=== PATIENT | male | born 1950 | race Caucasian/White ===

== ENCOUNTER 2020-06-24 18:24 | Emergency (ER) | payer MEDICARE, SELFPAY ==
--- NOTE | 2020-06-24 | CT_ITS ---
PROCEDURE: CT CERVICAL SPINE W CON CLINICAL INDICATION: neck pain COMPARISON: No exams were available for comparison TECHNIQUE: 75 mL Optiray 350 Axial images obtained with sagittal and coronal reformats. All CT scans at the facility use one or more dose reduction, viz: automated exposure control, ma/kV adjustment per patient size (including targeted exams where dose is matched to indication, i.e. head), or iterative reconstruction technique. Axial spiral CT scanning performed of the cervical spine beginning at the base of the skull and continuing to the upper T-spine. 3-D multiplanar reconstruction with 3-D manipulation of volumetric data set in image rendering was completed by the radiologist and/or technologist with the supervision of the radiologist on independent workstation. FINDINGS: There is straightening of the cervical lordosis could be due to patient positioning or muscle spasm. There is normal alignment. No acute fracture or dislocation. No lytic or blastic change. No enhancing lesions are evident. There is an area of decreased attenuation in the right lobe of the thyroid gland measuring 1 cm. This is anterior. In the right lobe posterior there is an additional 1 cm hypodensity. There has been a prior median sternotomy. C2-C3: Mild degenerative disc disease. C3-C4: Mild degenerative disc disease with minimal prominence and ossification of the posterior longitudinal ligament. C4-C5: Degenerate disc disease with left-sided foraminal narrowing from facet and uncovertebral hypertrophy. 2 mm anterolisthesis of C4. C5-C6: Minimal bulging disc. C6-C7: Unremarkable. C7-T1: Unremarkable. Lung apices are clear. There is bowing of the posterior aspect of the trachea having a semilunar configuration which may be seen with tracheal bronchomalacia. Please correlate clinically. There is mild nonspecific thickening of the esophagus in the cervical region. IMPRESSION: 1. Multilevel cervical spondylosis as detailed above. 2. There is bowing of the posterior aspect of the trachea having a semilunar configuration which may be seen with tracheal bronchomalacia. Please correlate clinically. There is mild nonspecific thickening of the esophagus in the cervical region. 3. At least 2 thyroid nodules on the right. Dictated by: Gwendolyn, Resident 08/03/2020 11:55 Tristin Li MD in [place] 08/03/2020 12:09
[2020-06-24 18:25] VITALS: BP 171/90; PULSE 73; RESP 16; TEMP 37.2; O2SAT 96; BMI 28.1
--- NOTE | 2020-06-24 18:48 | HMH.EDGENADL ---
ED Disposition Condition on Discharge: Fair - Critical Care Critical Care Time: No <EdwardLuc - Last Filed: 06/24/20 20:12> <Jerzy Macias - Last Filed: 06/24/20 21:12> Clinical Impression: Neck pain Cervical osteoarthritis Qualifiers: Spinal osteoarthritis complication: with radiculopathy Qualified Code(s): M47.22 - Other spondylosis with radiculopathy, cervical region Disposition: Home, Self-Care Instructions: DI for Neck Pain Additional Instructions: keep appt in am Referrals: Addy Orozco MD [Primary Care Provider] - Attestation: On 06/24/20, the high probability of a clinically significant, sudden or life threatening deterioration of the following system(s) required my full and direct attention, intervention and personal management. The time I documented below is in addition to time spent performing reported procedures but includes the following listed in this critical care notation. Medical Decision Making - Lucien Inquiry Pt receiving controlled substance: Yes Lucien was queried for this patient: Yes Reference #:: [id number] Risks and benefits of using a controlled substance: were discussed with pt by me Comment: 0 rxs. - Lab Data Result diagrams: 06/24/20 19:20 06/24/20 19:20 - CT Data CT Scan: C-Spine Time Received: 19:42 ([facility] fax) ED CT Reviewed: Yes: I have viewed the radiologist's interpretation <AmrikkatieLuc - Last Filed: 06/24/20 20:12> - Lab Data Lab results reviewed: Yes: I reviewed the patient's lab results. Result diagrams: 06/24/20 19:20 06/24/20 19:20 <Jerzy Macias - Last Filed: 06/24/20 21:12> Vital Signs: 06/24/20 18:25 06/24/20 19:09 06/24/20 19:36 Temperature 98.9 F Temperature Source Oral Pulse Rate [Radial] 73 73 67 Respiratory Rate 16 18 18 Blood Pressure [Right Arm] 171/90 H 165/87 H 138/85 Blood Pressure Mean [Right Arm] 117 113 102 Blood Pressure Source [Right Arm] Automatic Cuff Blood Pressure Position [Right Arm] Sitting Sitting 02 Sat by Pulse Oximetry 96 94 L 93 L Oxygen Delivery Method Room Air Room Air 06/24/20 20:12 06/24/20 20:36 Temperature Temperature Source Pulse Rate [Radial] 68 61 Respiratory Rate 18 18 Blood Pressure [Right Arm] 140/86 130/74 Blood Pressure Mean [Right Arm] 104 92 Blood Pressure Source [Right Arm] Blood Pressure Position [Right Arm] 02 Sat by Pulse Oximetry 93 L 94 L Oxygen Delivery Method Room Air Room Air - Lab Data Lab Results 06/24/20 19:20: WBC 12.6 H, RBC 5.03, Hgb 14.2, Hct 41.6 L, MCV 82.8, MCH 28.2, MCHC 34.0, RDW 14.2, Plt Count 190, MPV 8.4, Neut % (Auto) 75.6, Lymph % (Auto) 16.2, [place] % (Auto) 7.0, Eos % (Auto) 1.1, Baso % (Auto) 0.2, Neut # (Auto) 9.5 H, Lymph # (Auto) 2.1, [place] # (Auto) 0.9, Eos # (Auto) 0.1, Baso # (Auto) 0.0, ESR 27 H 06/24/20 19:20: Sodium 137, Potassium 3.9, Chloride 96 L, Carbon Dioxide 30, Anion Gap 14.9, BUN 26 H, Creatinine 1.20, Estimated Creat Clear 67, Estimated GFR 60, Est GFR ( Amer) 73, Glucose 172 H, Calcium 9.3, C-Reactive Protein 38.0 H 06/24/20 20:02: Lactate 2.1 Orders (Tests/Meds): ED MEDICATIONS Discontinued Medications Generic Name Dose Route Start Last Admin Trade Name Tuan PRN Reason Stop Dose Admin Ioversol 75 ml 06/24/20 20:25 06/24/20 20:27 Ioversol-350 (74%) 100ml Vial IV 06/24/20 20:26 75 ml ONCE ONE Administration Protocol Ketorolac Tromethamine 15 mg 06/24/20 19:01 06/24/20 19:07 Ketorolac 30mg/Ml Vial IV 06/24/20 19:02 15 mg ONCE ONE Administration Methylprednisolone Sodium Succinate 125 mg 06/24/20 21:02 06/24/20 21:03 Methylprednisolone Sod Succ 125mg Vial IV 06/24/20 21:03 125 mg ONCE ONE Administration Morphine Sulfate 4 mg 06/24/20 19:01 06/24/20 19:07 Morphine 4mg/Ml Syringe IV 06/24/20 19:02 4 mg ONCE ONE Administration Ondansetron HCl 4 mg 06/24/20 19:01 06/24/20 19:08 Ondansetron 4mg/2ml Vial IV 06/24/20 19:02 4 mg
--- NOTE | 2020-06-24 19:00 | CT_ITS ---
PROCEDURE: CT CERVICAL SPINE WO CON CLINICAL INDICATION: neck pain COMPARISON: No exams were available for comparison TECHNIQUE: Axial images obtained with sagittal and coronal reformats. All CT scans at the facility use one or more dose reduction, viz: automated exposure control, ma/kV adjustment per patient size (including targeted exams where dose is matched to indication, i.e. head), or iterative reconstruction technique. Axial spiral CT scanning performed of the cervical spine beginning at the base of the skull and continuing to the upper T-spine. 3-D multiplanar reconstruction with 3-D manipulation of volumetric data set in image rendering was completed by the radiologist and/or technologist with the supervision of the radiologist on independent workstation. FINDINGS: There is straightening of the cervical lordosis could be due to patient positioning or muscle spasm. There is normal alignment. No acute fracture or dislocation. No lytic or blastic change. C2-C3: Mild degenerative disc disease. C3-C4: Mild degenerative disc disease with minimal prominence and ossification of the posterior longitudinal ligament. C4-C5: Degenerate disc disease with left-sided foraminal narrowing from facet and uncovertebral hypertrophy. 2 mm anterolisthesis of C4. C5-C6: Minimal bulging disc. C6-C7: Unremarkable. C7-T1: Unremarkable. Lung apices are clear. There is bowing of the posterior aspect of the trachea having a semilunar configuration which may be seen with tracheal bronchomalacia. Please correlate clinically. There is mild nonspecific thickening of the esophagus in the cervical region. IMPRESSION: 1. Multilevel cervical spondylosis as detailed above. 2. There is bowing of the posterior aspect of the trachea having a semilunar configuration which may be seen with tracheal bronchomalacia. Please correlate clinically. There is mild nonspecific thickening of the esophagus in the cervical region. Dictated by: Tristin Li MD 06/25/2020 08:41 Tristin Li MD in [place] 06/25/2020 08:41
[2020-06-24 19:09] VITALS: BP 165/87; PULSE 73; RESP 18; O2SAT 94
[2020-06-24 19:24] LABS: Basophils % 0.2 % (0.1-2.0); Eosinophils # 0.1 K/mm3 (0.0-0.4); Eosinophils % 1.1 % (0.1-12.0); Hematocrit 41.6 % (42.0-52.0); Hemoglobin 14.2 g/dL (14.1-18.0); Lymphocytes # 2.1 K/mm3 (0.7-4.5); Lymphocytes % 16.2 % (10-50); Mean Corpuscular Hemoglobin 28.2 pg (27.0-31.2); Mean Corpuscular Volume 82.8 fl (80-94); Mean Platelet Volume 8.4 fl (7.4-10.4); Monocytes # 0.9 K/mm3 (0.1-1.0); Neutrophils # 9.5 K/mm3 (1.8-7.8); Neutrophils % 75.6 % (37.0-80.0); Platelet Count 190 K/mm3 (142-424); Red Blood Count 5.03 M/mm3 (4.60-6.20); Red Cell Distribution Width 14.2 % (11.5-17.5); White Blood Count 12.6 K/mm3 (4.8-10.8)
[2020-06-24 19:29] LABS: Chloride 96 mmol/L (98-107); Sodium 137 mmol/L (136-145)
[2020-06-24 19:30] LABS: Potassium 3.9 mmoL/L (3.5-5.1)
[2020-06-24 19:32] LABS: Blood Urea Nitrogen 26 mg/dl (9-20); Creatinine Clearance Estimated 67 mL/min (50-200); Estimated Glomerular Filt Rate 60 ml/min (>60); GFR (African American) 73 ML/MIN (>60)
[2020-06-24 19:33] LABS: Anion Gap 14.9 mEq/L (5-15); Calcium 9.3 mg/dl (8.4-10.2); Carbon Dioxide 30 mmol/L (22.0-30.0); Glucose 172 mg/dl (74-100)
[2020-06-24 19:36] VITALS: BP 138/85; PULSE 67; RESP 18; O2SAT 93
[2020-06-24 20:09] LABS: Erythrocyte Sedimentation Rate 27 mm/hr (0-20)
[2020-06-24 20:12] VITALS: BP 140/86; PULSE 68; RESP 18; O2SAT 93
[2020-06-24 20:35] LABS: Lactic Acid 2.1 mmol/L (0.7-2.1)
[2020-06-24 20:36] VITALS: BP 130/74; PULSE 61; RESP 18; O2SAT 94
[2020-06-24 21:22] VITALS: BP 126/68; PULSE 61; RESP 16; TEMP 37.2; O2SAT 94
== END 2020-06-24 21:25 | disposition home or self-care (01) ==
PROVIDERS: Emergency Provider Emergency Medicine; PCP Internal Medicine Adolescent Medicine
DX: M54.2 Cervicalgia (principal); M47.22 Other spondylosis with radiculopathy, cervical region
CPT/HCPCS: 72125; 72126; 72127; 80048; 83605; 85025; 85651; 86140; 87040; 96374; 96375; 99283; J2405; Q9967

== ENCOUNTER 2020-07-27 08:00 | Outpatient (RCR) | payer MEDICARE, SELFPAY ==
--- NOTE | 2020-06-30 10:45 | HMH.PTOPEV ---
PT Outpatient Evaluation Rehab PT Outpatient Evaluation Start: 06/30/20 10:25 Freq: Status: Active Protocol: Document 06/30/20 10:25 [email or web address] (Rec: 06/30/20 10:44 [email or web address] [id number]) Electronically Signed By Yusuf Palma, PT 06/30/20 10:25 Outpatient Therapy Subjective History Subjective History Pt. is a 69 year old male who presents to Outpatient PT clinic w/ complaints of chronic and intermittent cervical(L>R) P! of insidious onset since January 2020. Pt. 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 Pt. describes symptoms as sharp(pt. 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 Pt. reports symptom relief post injections and w/ anti- inflammatory medication. Recent diagnostic imaging positive for increased inflammation per pt. report. Pt. RTMD 07/26/20. Current medications include Baby Aspirin and an anti- inflammatory. PMH includes Hypolipidemia, Tachycardia, Heart bypass surgery, and a Cholecystectomy. Chief Complaint Pain,Stiff Symptom Type Sharp,Stabbing Symptoms Relieved By Rest/Positioning,Heat,OTC Meds ,Prescription Meds Symptoms Aggravated By Supine,Twisting,Lifting Prior Functional Limitations None Current Functional Limitations Lifting,Sleeping Symptom Description Intermittent Level of pain today (0-10) 2 Pain scale - at its best (0-10) 0 Pain scale - at its worst (0-10) 10 Cervical Eval Palpation Cervical Muscles L Suboccipital,L SCM,L Upper Trapezius Cervical/Thoracic Palpation Findings Tenderness Posture Head/C-Spine Posture Sitting Position Flexed Head/C-Spine Posture Standing Position Flexed
== END 2020-08-12 17:03 | disposition home or self-care (01) ==
LOC: PT.CARL 08:00
PROVIDERS: PCP Internal Medicine Adolescent Medicine; Visit Provider Internal Medicine Adolescent Medicine
DX: M47.812 Spondylosis without myelopathy or radiculopathy, cervical region (principal); M54.2 Cervicalgia
CPT/HCPCS: 97014; 97110; 97163; G0283

== ENCOUNTER → 2021-06-15 10:39 | Outpatient (CLI) | payer MEDICARE, SELFPAY ==
--- NOTE | 2021-06-15 | CA_ITS ---
APPROVED REPORT EXAM: Comprehensive 2D, Doppler, and color-flow Echocardiogram Options Trader: Adriana Ruvalcaba RT(R) Ht: 5 ft 7 in Wt: 184lbs BSA: 1.95 BP: 132/84 mmHg Indications: Edema, HTN, fatigue, syncope, CAD 2D Dimensions LVOT 2.00 cm (M/F) 1.5-2.5 LA Volume 31.90 mL LA Volume Index 16.35 mL/m2 (M/F) 16-34 M-Mode Dimensions RVDd 2.90 cm (0.9-2.6) LA Diam 3.35 cm (1.9-4.0) LVDd 5.31 cm (3.5-5.7) Ao Diam 2.54 cm (2.0-3.7) LVDs 4.30 cm (3.5-5.7) IVSd 0.97 cm (0.6-1.1) PWd 0.89 cm (0.6-1.1) EF (Teich) 38.90% FS 19.00% EDV (Teich) 135.90 mL ESV (Teich) 83.10 mL LV Diastology E Decel Time 263.00 (160-240 msec) E/A Ratio 0.7 MED E' 5.80 (< 7 cm/sec) E'/MED E' Ratio 12.12 (>14) LAT E' 8.90 (<10 cm/sec) E/LAT E' Ratio 7.90 (>14) Mitral Valve MV E Max Yanick. 70.00 (40-130 cm/s) MV A Velocity 104.00 (40-130 cm/s) E/A Ratio 0.67 MV Decel. Time 263.00 (160-240 ms) MV PHT 77.00 ms Tricuspid Valve TR P. Velocity 189.00 cm/s RAP Estimate 10.00 mmHg RVSP 24.30 mmHg Left Ventricle Left atrium is mildly enlarged, left ventricle is normal size, mild concentric left ventricular hypertrophy, visually estimated ejection fraction 50% with no regional wall motion abnormality, grade 1 diastolic dysfunction seen without tissue Doppler evidence of raise left atrial pressure. Right Ventricle Right atrium and right ventricle mildly enlarged with normal contractility. Aortic Valve Aortic valve is thickened and calcified leaflet continue to display good mobility, there is no aortic stenosis or aortic insufficiency. Mitral Valve Mitral valve is grossly normal, there is mild mitral regurgitation. Tricuspid Valve Tricuspid valve grossly normal, there is mild tricuspid regurgitation, tricuspid regurgitation jet velocity is inadequate for calculation of the right ventricular systolic pressure. Pulmonic Valve Pulmonic valve is poorly visualized. Great Vessels Aortic root is normal size. Inferior vena cava is normal size with normal inspiratory collapse. Pericardium No significant pericardial effusion noted. Conclusion 1. Mild biatrial enlargement, normal left ventricular size, visually estimated ejection fraction 50%, there is mild concentric left ventricular hypertrophy seen, grade 1 diastolic dysfunction seen without tissue Doppler evidence of raise left atrial pressure. 2. Thickened and calcified aortic valve without Doppler evidence of aortic stenosis or aortic insufficiency. 3. Mildly enlarged right ventricle with normal contractility 4. Mild mitral and tricuspid regurgitation. 5. No significant pericardial effusion noted. Electronically signed by : Leonidas Pappas MD 06/16/2021 14:26:35
== END ==
PROVIDERS: PCP Internal Medicine Adolescent Medicine; Visit Provider Internal Medicine Adolescent Medicine
DX: I10 Essential (primary) hypertension (principal); I25.10 Atherosclerotic heart disease of native coronary artery without angina pectoris; R94.31 Abnormal electrocardiogram [ECG] [EKG]
CPT/HCPCS: 93306

== ENCOUNTER → 2021-06-22 12:25 | Outpatient (CLI) | payer MEDICARE, SELFPAY | PROVIDERS: Visit Provider Internal Medicine | DX: R55 Syncope and collapse (principal) | CPT/HCPCS: C9803; U0003; U0005 ==

== ENCOUNTER 2021-06-22 12:46 | Day surgery (SDC) | payer MEDICARE, SELFPAY ==
[2021-06-22 13:10] VITALS: BP 163/88; PULSE 51; PULSE 52; RESP 18; TEMP 36.9; O2SAT 97
--- NOTE | 2021-06-22 13:18 | HMH.LOOP ---
[facility] Loop Recorder Date: 06/22/21 Time: 13:10 Procedure Performed:: Loop recorder implantation Indication:: Syncope Technique:: Patient was brought to the cardiac Human Services Professional. After informed consent obtained, 1% lidocaine with epinephrine was used to anesthetize the site along the left anterior aspect of the chest near the sternal border. Using the preformed scalpel, an incision was made and using the supplied preloaded apparatus, the loop recorder was placed subcutaneously without difficulty. Following the deployment of the loop recorder interrogation of the device was performed to ensure appropriate voltage was being detected. Once this was verified, Steri-Strips were placed over the incision and the patient was prepped to discharge home. Patient tolerated the procedure well with minimal discomfort. Loop recorder inserted by Nasim Rodríguez APRN under the direct supervision of Bharath Key MD. Impression:: Successful implantation of loop recorder. Serial Number:: [employer] [id number] Plan:: Routine postop care
[2021-06-22 13:31] VITALS: BP 157/97; PULSE 49; RESP 18; O2SAT 97
[2021-06-22 13:33] VITALS: BP 157/97; PULSE 49; RESP 18; O2SAT 97
== END 2021-06-22 13:38 | disposition home or self-care (01) ==
LOC: CATHLAB 12:48
PROVIDERS: PCP Internal Medicine Adolescent Medicine; Visit Provider Internal Medicine
DX: R55 Syncope and collapse (principal); E11.9 Type 2 diabetes mellitus without complications; Z79.84 Long term (current) use of oral hypoglycemic drugs; I10 Essential (primary) hypertension; R42 Dizziness and giddiness; I25.810 Atherosclerosis of coronary artery bypass graft(s) without angina pectoris; Z95.1 Presence of aortocoronary bypass graft; Z95.5 Presence of coronary angioplasty implant and graft; Z79.899 Other long term (current) drug therapy; Z79.01 Long term (current) use of anticoagulants; Z20.822 Contact with and (suspected) exposure to COVID-19
CPT/HCPCS: 33285; C9803; U0003; U0005

== ENCOUNTER → 2021-07-06 11:23 | Outpatient (CLI) | payer MEDICARE, SELFPAY ==
--- NOTE | 2021-07-06 | CA_ITS ---
APPROVED REPORT Exam: Exercise Treadmill Technologist: Lata Russo Ht: 5 ft 7 in Wt: 195 lbs BSA: 2.00 m2 HR: 60 bpm BP: 162/82 mmHg Indications: short of breath..syncope..fatigue Stress Test Details Test: Exercise stress testing was performed using a Aguilar protocol. HR Resting HR: 60 bpm Max Heart Rate (APMHR): 150.044683 bpm Max HR Achieved: 116 bpm Target HR (85% APMHR): 127.590026 bpm % of APMHR: 77.33 Recovery HR: 72 bpm BP Resting BP: 162.0/82.0 mmHg Max BP: 192.0/89.0 mmHg Recovery BP: 160.0/91.0 mmHg ECG Resting ECG: NSR, slow R wave progression Stress ECG Conclusion Exercised 5:30 on Aguilar Protocol. Stopping due to dyspnea. Max HR: 116 % of PM: 77% Max BP: 192/89 METs: 7.0 Test stopped due to: SOA Symptoms: No CP. Arrhythmias/Ectopy: Occ PVC. ST-T Changes: 0.5-0.75mm upsloping ST depression and 0.5mm horiz. ST depression in inferior leads. T wave inversion in the lateral leads in recovery. Conclusion: Abnormal EKG changes. Blunted HR response on Beta-maxime. Myoview images reported separately. Electronically signed by : Chapo Key MD 07/08/2021 14:25:59
--- NOTE | 2021-07-06 11:23 | NM_ITS ---
APPROVED REPORT Exam: Nuclear Stress Test Indication: short of breath.syncope..fatigue Patient Location: Outpatient Stress Tech: Lata Russo AR Tech:Leonora Penaloza, ARRT, RT (R)(N) Ht: 5 ft 7 in Wt: 195 lbs HR: 60 bpm BP: 162/82 mmHg BSA: 2.00 m2 BMI: 30.5 History: short of breath.syncope..fatigue Procedure: Patient exercised on Aguilar protocol 5.30 minutes and sec, resting heart rate 60 bpm, resting blood pressure 162/82 mmHg, with exercise maximum heart rate achived was 116 bpm which is 77 % of the maximum predicted heart rate and blood pressure was 192/89 mmHg. Patient denied any complaint of chest pain. Patient has Adequate exercise capacity, achieved 7.0 METs of workload on treadmill, the blood pressure response to exercise was Adequate. Electrocardiogram Resting electrocardiogram shows sinus rhythm with exercise there is [address] segment depression noted from the baseline EKG more pronounced in the recovery., The EKG portion of the exercise Myoview is positive for ischemia. Cardiac Stress and Resting SPECT Images: Cardiac Stress and Resting SPECT images were obtained using technetium 99m Myoview 29.9 mCi stress and 10.95 mCi at rest. Gated SPECT for analysis of segmental wall motion and calculation of the ejection fraction also done. Cardiac stress and resting SPECT images show reversible ischemia involving the inferior and posterior basal wall. Computer derived ejection fraction is 44% with moderate inferior wall hypokinesis. Right ventricle is normal size and contractility. Conclusion: 1. EKG portion of the exercise Myoview is positive for ischemia, patient has adequate exercise capacity achieved 7 METS of workload on treadmill, the blood pressure response to exercise was adequate. 2. Scintigraphic evidence of reversible ischemia involving the inferior and posterior basal wall, computer derived ejection fraction 44% with segmental wall motion abnormality described above, right ventricle is normal size and contractility 3. Abnormal exercise Myoview study Electronically signed by : Leonidas Pappas MD 07/14/2021 13:12:30
--- NOTE | 2021-07-06 13:27 | HMH.ITSHM ---
Current Home Medications as stated by this patient Tre Castro or airport representative. []METFORMIN LOSARTAN CLOPIDOGREL CARVEDILOL ASA ATORVASTATIN
--- NOTE | 2021-07-06 14:29 | CA_ITS ---
APPROVED REPORT Floatlight Loading Supervisor: ZULEMA Laterality: Bilateral Indications: syncope, dizziness Doppler Spectral Velocity Analysis ECA (R) 61.60/15.40 cm/s ECA (L) 54.30/9.00 cm/s dICA (R) 73.70/19.70 cm/s dICA (L) 84.80/28.30 cm/s Layo (R) 66.00/26.60 cm/s Layo (L) 83.10/26.60 cm/s pICA (R) 81.40/20.60 cm/s pICA (L) 80.90/25.70 cm/s dCCA (R) 44.90/14.50 cm/s dCCA (L) 53.90/14.80 cm/s pCCA (R) 73.20/13.50 cm/s pCCA (L) 74.50/17.30 cm/s Vert (R) 37.70/11.10 cm/s Vert (L) 36.80/12.90 cm/s ICA/CCA 1.81 ICA/CCA 1.57 Findings Duplex evaluation demonstrates stenosis of the right proximal internal carotid artery <20% with PSV <140 cm/sec, EDV <100 cm/sec, and IC/CC Ratio <4.0. Duplex evaluation demonstrates stenosis of the left proximal internal carotid artery <20% with PSV <140 cm/sec, EDV <100 cm/sec, and IC/CC Ratio <4.0. Conclusion Duplex evaluation demonstrates stenosis of the right proximal internal carotid artery <20% with PSV <140 cm/sec, EDV <100 cm/sec, and IC/CC Ratio <4.0. Duplex evaluation demonstrates stenosis of the left proximal internal carotid artery <20% with PSV <140 cm/sec, EDV <100 cm/sec, and IC/CC Ratio <4.0. Electronically signed by : Freda Cardenas MD 07/08/2021 16:17:15
== END ==
PROVIDERS: PCP Internal Medicine Adolescent Medicine; Visit Provider Internal Medicine Cardiovascular Disease
DX: E78.5 Hyperlipidemia, unspecified (principal); I10 Essential (primary) hypertension; I25.708 Atherosclerosis of coronary artery bypass graft(s), unspecified, with other forms of angina pectoris; R06.00 Dyspnea, unspecified; R42 Dizziness and giddiness; R55 Syncope and collapse; R94.31 Abnormal electrocardiogram [ECG] [EKG]; Z95.1 Presence of aortocoronary bypass graft
CPT/HCPCS: 78452; 93017; 93880; A9502

== ENCOUNTER → 2021-07-19 09:43 | Outpatient (CLI) | payer MEDICARE, SELFPAY ==
[2021-07-19 10:05] LABS: Basophils # 0.1 K/mm3 (0-0.2); Basophils % 0.9 % (0.1-2.0); Eosinophils # 0.2 K/mm3 (0.0-0.4); Eosinophils % 2.1 % (0.1-12.0); Hematocrit 45.2 % (42.0-52.0); Lymphocytes # 3.7 K/mm3 (0.7-4.5); Lymphocytes % 39.7 % (10-50); Mean Corpuscular HGB Conc 33.2 g/dL (31.8-35.4); Mean Corpuscular Hemoglobin 28.9 pg (27.0-31.2); Mean Corpuscular Volume 87.2 fl (80-94); Mean Platelet Volume 8.3 fl (7.4-10.4); Monocytes # 0.6 K/mm3 (0.1-1.0); Monocytes % 6.4 % (1.7-9.3); Neutrophils # 4.7 K/mm3 (1.8-7.8); Neutrophils % 50.8 % (37.0-80.0); Platelet Count 229 K/mm3 (142-424); Red Blood Count 5.19 M/mm3 (4.60-6.20); Red Cell Distribution Width 14.5 % (11.5-17.5); White Blood Count 9.2 K/mm3 (4.8-10.8)
[2021-07-19 10:56] LABS: Anion Gap 16.4 mEq/L (5-15); Blood Urea Nitrogen 22 mg/dl (9-20); Calcium 9.6 mg/dl (8.4-10.2); Carbon Dioxide 27 mmol/L (22.0-30.0); Chloride 102 mmol/L (98-107); Estimated Glomerular Filt Rate 66 ml/min (>60); GFR (African American) 80 ML/MIN (>60); Glucose 154 mg/dl (74-100); Potassium 4.4 mmoL/L (3.5-5.1); Sodium 141 mmol/L (136-145)
== END ==
PROVIDERS: Visit Provider Internal Medicine
DX: E78.5 Hyperlipidemia, unspecified (principal); I10 Essential (primary) hypertension; I25.10 Atherosclerotic heart disease of native coronary artery without angina pectoris; R06.00 Dyspnea, unspecified; R42 Dizziness and giddiness; R55 Syncope and collapse; R94.31 Abnormal electrocardiogram [ECG] [EKG]; Z95.1 Presence of aortocoronary bypass graft; Z95.818 Presence of other cardiac implants and grafts; Z01.812 Encounter for preprocedural laboratory examination; Z11.52 Encounter for screening for COVID-19
CPT/HCPCS: 36415; 80048; 85025; C9803; U0003; U0005

== ENCOUNTER 2021-07-21 08:11 | Day surgery (SDC) | payer MEDICARE, SELFPAY ==
[2021-07-21] VITALS (13 sets, daily range): BP systolic 110–148; BP diastolic 71–88; PULSE 68–85; RESP 13–20; TEMP 36.6; O2SAT 93–98; BMI 30.8
--- NOTE | 2021-07-21 | IR_ITS ---
APPROVED REPORT Patient Location: Outpatient Shower Screen Installer: CHRISTIANE Potts RT (R) PROCEDURES Left heart catheterization Left ventriculogram Selective coronary angiogram Left internal mammary angiography Selective engagement saphenous vein graft to the right coronary Drug-eluting stent deployment to the saphenous vein graft supplying the right coronary artery Drug-eluting stent deployment to the obtuse marginal artery of the unbypassed circumflex artery INDICATION Coronary artery disease, History of coronary artery bypass surgery, Abnormal Myoview, Angina pectoris Informed consent was obtained prior to the procedure. COMPLICATIONS NONE Estimated Blood Loss: LESS THAN 10 ML TECHNIQUE One percent lidocaine used to anesthetize the right groin. The right femoral artery was accessed via the Seldinger technique and a 5 Tunisian sheath was placed in the right femoral artery. A JL 4, JR4 catheter were used to perform left heart catheterization, left ventriculogram selective coronary angiography as well as selective engagement of the 1 vein graft and the left internal mammary artery. At the end of the procedure therapeutic heparin was administered giving a therapeutic ACT and the 5 Tunisian sheath was exchanged for a 6 Tunisian sheath. A JR4 guide catheter was placed in the saphenous vein graft to the right coronary artery and a Choice PT extra-support wire was placed distally. A 3.5 x 22 mm resolute [place] stent was deployed at 24 bernardo reducing the severe stenosis to less than 10%. ELIO-3 flow was present before and after the procedure. Following this the apparatus was removed and a 6 Tunisian JL4 guide catheter was placed in the left main artery with a Choice PT wire placed in the obtuse marginal artery. A 2.25 x 12 mm resolute [place] stent was deployed at 24 bernardo in the proximal obtuse marginal artery reducing the critical stenosis to 0%. At the end of the procedure the apparatus was removed the groin was reprepped closure changed sheath was removed good hemostasis was achieved using Perclose device patient transferred to the postop putting a stable addition ANGIOGRAPHIC RESULTS The left main artery Has a smooth ostial 20% stenosis and gives rise to a small sized ramus intermedius which is patent The left anterior descending artery Ostially occluded The circumflex artery Is nondominant and gives rise to a solitary obtuse marginal artery. The main body the circumflex artery has 40% stenosis while the obtuse marginal artery has an ostial 90% focal stenosis The right coronary artery Is dominant and proximally occluded The [place] ventriculogram reveals Slightly dilated with ejection fraction 45 to 50% The left ventricular end-diastolic pressure 10 mmHg PERDOMO graft is widely patent to the LAD Saphenous vein graft to the right coronary artery has a stent through the mid segment which has concentric 70% in-stent restenosis followed by an eccentric 50% in-stent restenotic lesion. IMPRESSION Coronary disease as described above Severe disease in the saphenous vein graft supplying the right coronary artery with successful stenting reducing the stenosis to less than 10% with 1 drug-eluting stent Severe disease in the first obtuse marginal artery with successful stenting reducing the severe disease to 0% with 1 drug-eluting stent Slightly reduced ejection fraction with normal LVEDP PLAN 1. Dual antiplatelet therapy 2. Cardiac rehabilitation 3. Risk factor modification 4. Avoidance of tobacco products 5. Continue medical management 6. LDL less than 55 Electronically signed by : Chapo Key MD 07/21/2021 11:17:36
--- NOTE | 2021-07-21 14:22 | HMH.PHACLD ---
Tre Castro has received discharge medication counseling on the following medications: PATIENT IS CURRENTLY TAKING CARVEDILOL 6.25 MG BID, LOSARTAN 50 MG DAILY, ATORVASTATIN 40 MG HS, ASPIRIN DR 81 MG DAILY, AND CLOPIDOGREL 75 MG DAILY. MD HOLDING METFORMIN FOR 2 DAYS. WILL RESTART ON SUNDAY.
== END 2021-07-21 14:58 | disposition home or self-care (01) ==
LOC: CATHLAB 08:13
PROVIDERS: PCP Internal Medicine Adolescent Medicine; Visit Provider Internal Medicine
DX: R94.39 Abnormal result of other cardiovascular function study (principal); I25.118 Atherosclerotic heart disease of native coronary artery with other forms of angina pectoris; Z95.1 Presence of aortocoronary bypass graft; T82.855A Stenosis of coronary artery stent, initial encounter; Y83.1 Surgical operation with implant of artificial internal device as the cause of abnormal reaction of the patient, or of later complication, without mention of misadventure at the time of the procedure; E11.9 Type 2 diabetes mellitus without complications; Z79.84 Long term (current) use of oral hypoglycemic drugs; Z79.899 Other long term (current) drug therapy
CPT/HCPCS: 92937; 92938; 93459; 99152; 99153; C1725; C1760; C1769; C1876; C1894; C9604; C9605; J1644; Q9967

== ENCOUNTER → 2021-08-01 13:30 | Outpatient (CLI) | payer MEDICARE, SELFPAY ==
[2021-08-01 14:10] LABS: Basophils # 0.1 K/mm3 (0-0.2); Basophils % 0.9 % (0.1-2.0); Eosinophils # 0.3 K/mm3 (0.0-0.4); Eosinophils % 2.4 % (0.1-12.0); Hematocrit 42.8 % (42.0-52.0); Hemoglobin 14.4 g/dL (14.1-18.0); Lymphocytes # 4.3 K/mm3 (0.7-4.5); Lymphocytes % 40.6 % (10-50); Mean Corpuscular HGB Conc 33.6 g/dL (31.8-35.4); Mean Corpuscular Hemoglobin 28.6 pg (27.0-31.2); Mean Corpuscular Volume 85.1 fl (80-94); Mean Platelet Volume 8.3 fl (7.4-10.4); Monocytes # 0.6 K/mm3 (0.1-1.0); Neutrophils # 5.3 K/mm3 (1.8-7.8); Neutrophils % 50.1 % (37.0-80.0); Platelet Count 271 K/mm3 (142-424); Red Blood Count 5.03 M/mm3 (4.60-6.20); Red Cell Distribution Width 14.3 % (11.5-17.5); White Blood Count 10.6 K/mm3 (4.8-10.8)
[2021-08-01 16:36] LABS: Chloride 101 mmol/L (98-107); Sodium 140 mmol/L (136-145)
[2021-08-01 16:37] LABS: Potassium 4.7 mmoL/L (3.5-5.1)
[2021-08-01 16:39] LABS: Blood Urea Nitrogen 25 mg/dl (9-20); Estimated Glomerular Filt Rate 54 ml/min (>60); GFR (African American) 66 ML/MIN (>60)
[2021-08-01 16:40] LABS: Anion Gap 12.7 mEq/L (5-15); Calcium 9.8 mg/dl (8.4-10.2); Carbon Dioxide 31 mmol/L (22.0-30.0); Glucose 108 mg/dl (74-100)
== END ==
PROVIDERS: Visit Provider Internal Medicine
DX: I25.10 Atherosclerotic heart disease of native coronary artery without angina pectoris (principal); Z95.5 Presence of coronary angioplasty implant and graft
CPT/HCPCS: 36415; 80048; 85025

== ENCOUNTER 2021-08-02 08:56 | Outpatient (RCR) | payer MEDICARE, SELFPAY | END 2021-09-23 08:59 | disposition home or self-care (01) | LOC: PT 08:56 | PROVIDERS: Visit Provider Internal Medicine | DX: I25.10 Atherosclerotic heart disease of native coronary artery without angina pectoris (principal); Z95.5 Presence of coronary angioplasty implant and graft | CPT/HCPCS: 93798 ==

== ENCOUNTER → 2021-09-12 19:48 | Outpatient (CLI) | payer MEDICARE, SELFPAY ==
[2021-09-12 22:23] LABS: Hemoglobin A1C 7.3 % (4.0-6.0)
== END ==
PROVIDERS: Visit Provider Internal Medicine Adolescent Medicine
DX: E11.9 Type 2 diabetes mellitus without complications (principal); Z79.84 Long term (current) use of oral hypoglycemic drugs
CPT/HCPCS: 83036

== ENCOUNTER 2024-03-06 12:40 | Outpatient (CLI) | payer MEDICARE, SELFPAY ==
[2024-03-06 12:51] VITALS: BMI 26.9
--- NOTE | 2024-03-06 12:54 | XR_ITS ---
FINAL REPORT CLINICAL HISTORY: chest pain COMPARISON: None FINDINGS: There are are mild increased markings in the left lung base, which may represent scarring or potentially pneumonia. The patient has undergone a prior CABG. There is no evidence of effusion or pneumothorax. Mediastinum is unremarkable. Heart size is normal. IMPRESSION: Mild increased markings in the left lung base, of uncertain etiology. May represent scarring or potentially pneumonia. Reviewed, Interpreted and Dictated by Alysha Russell MD Transcribed by Rosangela Unger Authenticated and . [facility]
[2024-03-06 13:23] LABS: Basophils # 0.1 K/mm3 (0-0.2); Basophils % 0.6 % (0.1-2.0); Eosinophils # 0.4 K/mm3 (0.0-0.4); Eosinophils % 2.1 % (0.1-12.0); Hematocrit 49.8 % (42.0-52.0); Hemoglobin 16.8 g/dL (14.1-18.0); Lymphocytes # 11.3 K/mm3 (0.7-4.5); Lymphocytes % 60.8 % (10-50); Mean Corpuscular HGB Conc 33.7 g/dL (31.8-35.4); Mean Corpuscular Hemoglobin 29.4 pg (27.0-31.2); Mean Corpuscular Volume 87.4 fl (80-94); Mean Platelet Volume 7.2 fl (7.4-10.4); Monocytes # 0.7 K/mm3 (0.1-1.0); Neutrophils # 6.1 K/mm3 (1.8-7.8); Neutrophils % 32.7 % (37.0-80.0); Platelet Count 225 K/mm3 (142-424); Red Cell Distribution Width 14.9 % (11.5-17.5); White Blood Count 18.7 K/mm3 (4.8-10.8)
[2024-03-06 13:24] VITALS: BP 97/60; PULSE 69; RESP 16; TEMP 36.3; O2SAT 94
[2024-03-06 13:24] LABS: MANUAL DIFFERENTIAL MANUAL DIFFERENTIAL (MANUAL DIFF)
[2024-03-06] MEDS: LACTATED RINGERS 1000ML 1,000 ML 999 ML IV (13:24)
[2024-03-06 13:33] LABS: Chloride 103 mmol/L (98-107)
[2024-03-06 13:34] LABS: Potassium 4.5 mmoL/L (3.5-5.1); Sodium 137 mmol/L (136-145)
[2024-03-06 13:36] LABS: Alanine Aminotransferase 44 U/L (12-78); Alkaline Phosphatase 82 U/L (38-126); Anion Gap 16.5 mEq/L (5-15); Aspartate Amino Transferase 35 U/L (17-59); Bilirubin,Total 1.3 mg/dl (0.2-1.3); Blood Urea Nitrogen 32 mg/dl (9-20); Carbon Dioxide 22 mmol/L (22.0-30.0); Creatine Kinase 74 U/L (55-170); Creatinine Clearance Estimated 45 mL/min (50-200); Estimated Glomerular Filt Rate 43 ml/min (>60); GFR (African American) 52 ML/MIN (>60); Magnesium 1.7 mg/dl (1.6-2.3)
[2024-03-06 13:37] LABS: Albumin/Globulin Ratio 1.5 (1.1-1.8); Calcium 9.5 mg/dl (8.4-10.2); Globulin 3.3 g/dL (1.3-3.2); Glucose 108 mg/dl (74-100); Total Protein,Serum 8.3 g/dl (6.3-8.2)
[2024-03-06 13:46] LABS: CKMB Relative Index 3.6 U/L (0-4.0); Creatine Kinase MB 2.7 ng/ml (0.0-2.03)
[2024-03-06 13:50] LABS: Eosinophils % 2 % (0-3); Lymphocytes % 64 % (10-50); Monocytes % 8 % (2-9); Neutrophils % 26 % (42-76); Platelet Estimate Normal; RBC Morphology Normal; Total Cells Counted 100
[2024-03-06 13:53] LABS: Troponin I < 0.01 ng/ml (0.00-0.034)
[2024-03-06 14:24] VITALS: BP 113/63; PULSE 65; RESP 18; O2SAT 94
[2024-03-06] MEDS: SODIUM CHLORIDE 0.9% 50ML BAG 50 ML IV (14:30)
[2024-03-06] MEDS: SODIUM CHLORIDE 0.9% 10ML FLUSH SYRINGE 10 ML IV (14:30)
[2024-03-06] MEDS: CEFTRIAXONE SODIUM 1 GM in 0.9 % SODIUM CHLORIDE 50 ML IV (14:30)
[2024-03-06] MEDS: AZITHROMYCIN 500 MG in 0.9 % SODIUM CHLORIDE 250 ML 250 MG IV (15:01)
[2024-03-06 15:24] VITALS: BP 112/65; PULSE 66; RESP 18; O2SAT 95
[2024-03-06 16:12] VITALS: BP 115/69; PULSE 69; RESP 16; TEMP 36.6; O2SAT 95
== END 2024-03-06 16:15 | disposition home or self-care (01) ==
LOC: INF 12:43
PROVIDERS: PCP Internal Medicine Adolescent Medicine; Visit Provider Internal Medicine Adolescent Medicine
DX: R11.0 Nausea (principal); R07.9 Chest pain, unspecified; Z79.2 Long term (current) use of antibiotics; Z79.899 Other long term (current) drug therapy
CPT/HCPCS: 96361; 71045; 80053; 82550; 82553; 83735; 84484; 85007; 85025; 85027; 96360; 96365; 96367; J0456; J0696; J7030; J7120

== ENCOUNTER 2024-04-03 10:39 | Outpatient (CLI) | payer MEDICARE, SELFPAY ==
[2024-04-03 11:14] LABS: Basophils # 0.1 K/mm3 (0-0.2); Eosinophils # 0.2 K/mm3 (0.0-0.4); Eosinophils % 1.9 % (0.1-12.0); Hematocrit 44.4 % (42.0-52.0); Hemoglobin 14.6 g/dL (14.1-18.0); Lymphocytes # 8.9 K/mm3 (0.7-4.5); Lymphocytes % 68.1 % (10-50); Mean Corpuscular HGB Conc 32.8 g/dL (31.8-35.4); Mean Corpuscular Hemoglobin 29.1 pg (27.0-31.2); Mean Corpuscular Volume 88.7 fl (80-94); Mean Platelet Volume 7.7 fl (7.4-10.4); Monocytes # 0.5 K/mm3 (0.1-1.0); Monocytes % 3.5 % (1.7-9.3); Neutrophils # 3.3 K/mm3 (1.8-7.8); Neutrophils % 25.6 % (37.0-80.0); Platelet Count 164 K/mm3 (142-424); Red Cell Distribution Width 15.6 % (11.5-17.5)
[2024-04-03 11:24] LABS: MANUAL DIFFERENTIAL MANUAL DIFFERENTIAL (MANUAL DIFF)
[2024-04-03 11:27] LABS: Anion Gap 10.7 mEq/L (5-15); Blood Urea Nitrogen 19 mg/dl (9-20); Carbon Dioxide 29 mmol/L (22.0-30.0); Chloride 107 mmol/L (98-107); Potassium 4.7 mmoL/L (3.5-5.1); Sodium 142 mmol/L (136-145)
[2024-04-03 11:28] LABS: Alanine Aminotransferase 36 U/L (12-78); Albumin Level 4.2 g/dl (3.5-5.0); Alkaline Phosphatase 61 U/L (38-126); Aspartate Amino Transferase 32 U/L (17-59); Bilirubin,Indirect 0.8 mg/dL (0.0-0.9); Bilirubin,Total 0.8 mg/dl (0.2-1.3); Calcium 9.4 mg/dl (8.4-10.2); Chol/HDL Ratio 2.6 (1-3.5); Cholesterol 90 mg/dl (140-200); Estimated Glomerular Filt Rate 54 ml/min (>60); GFR (African American) 65 ML/MIN (>60); Glucose 89 mg/dl (74-100); HDL Cholesterol 35 mg/dl (40-60); Magnesium 1.8 mg/dl (1.6-2.3); Total Protein,Serum 6.7 g/dl (6.3-8.2); Triglycerides 132 mg/dl (30-150); VLDL Cholesterol 26 mg/dL (0-40)
[2024-04-03 11:55] LABS: Eosinophils % 2 % (0-3); Lymphocytes % 66 % (10-50); Monocytes % 1 % (2-9); Neutrophils % 30 % (42-76); Platelet Estimate Normal; RBC Morphology Normal; Total Cells Counted 100
[2024-04-03 11:58] LABS: Thyroid Stimulating Hormone 1.82 uIU/mL (0.465-4.68)
== END 2024-04-03 23:59 | disposition home or self-care (01) ==
LOC: LAB 10:41
PROVIDERS: PCP Internal Medicine Adolescent Medicine; Visit Provider Physician Assistant
DX: I25.810 Atherosclerosis of coronary artery bypass graft(s) without angina pectoris (principal); Z95.1 Presence of aortocoronary bypass graft; I10 Essential (primary) hypertension; E78.5 Hyperlipidemia, unspecified
CPT/HCPCS: 36415; 80048; 80061; 80076; 83735; 84439; 84443; 85007; 85025; 85027

== ENCOUNTER 2025-01-02 10:18 | Outpatient (CLI) | payer MEDICARE, SELFPAY ==
[2025-01-02 10:22] LABS: Anti-Centromere B Antibodies ND; Anti-DNA (DS) Ab Qn ND; Anti-Jo-1 ND; Antichromatin Antibodies ND; Antiscleroderma-70 Antibodies ND; MANUAL DIFFERENTIAL MANUAL DIFFERENTIAL (MANUAL DIFF); RNP Antibodies ND; Sjogren's Anti-SS-A ND; Sjogren's Anti-SS-B ND
[2025-01-02 12:55] LABS: Erythrocyte Sedimentation Rate 9 mm/hr (0-20)
[2025-01-02 13:03] LABS: Lymphocytes % 78 % (10-50); Monocytes % 5 % (2-9); Neutrophils % 17 % (42-76); Platelet Estimate Normal; RBC Morphology Normal; Total Cells Counted 100
[2025-01-02 13:04] LABS: Basophils # 0.1 K/mm3 (0-0.2); Basophils % 0.4 % (0.1-2.0); Eosinophils # 0.3 Kmm3 (0.0-0.4); Eosinophils % 1.8 % (0.1-12.0); Hemoglobin 14.2 g/dL (14.1-18.0); Lymphocytes # 12.8 K/mm3 (0.7-4.5); Lymphocytes % 75.3 % (10-50); Mean Corpuscular HGB Conc 32.3 g/dL (31.8-35.4); Mean Corpuscular Hemoglobin 28.5 pg (27.0-31.2); Mean Corpuscular Volume 88.4 fl (80-94); Mean Platelet Volume 10.2 fl (7.4-10.4); Monocytes # 1.3 K/mm3 (0.1-1.0); Monocytes % 7.7 % (1.7-9.3); Neutrophils # 2.5 K/mm3 (1.8-7.8); Neutrophils % 14.6 % (37.0-80.0); Platelet Count 164 K/mm3 (142-424); Red Blood Count 4.98 M/mm3 (4.60-6.20); Red Cell Distribution Width 14.5 % (11.5-17.5); White Blood Count 16.9 K/mm3 (4.8-10.8)
[2025-01-02 15:37] LABS: RPR W/RFX Titers Nonreactive (Nonreactive)
[2025-01-05 13:36] LABS: Antinuclear Antibodies (ANA) Negative (Negative)
== END 2025-01-02 23:59 | disposition home or self-care (01) ==
LOC: LAB 10:19
PROVIDERS: PCP Internal Medicine Adolescent Medicine; Visit Provider Specialist
DX: R41.3 Other amnesia (principal); I69.993 Ataxia following unspecified cerebrovascular disease
CPT/HCPCS: 36415; 85007; 85014; 85018; 85048; 85049; 85651; 86038; 86592

== ENCOUNTER 2025-01-07 12:13 | Outpatient (CLI) | payer MEDICARE, SELFPAY | END 2025-01-07 23:59 | disposition home or self-care (01) | LOC: LAB 12:13 | PROVIDERS: PCP Internal Medicine Adolescent Medicine; Visit Provider Internal Medicine Medical Oncology | DX: Z86.2 Personal history of diseases of the blood and blood-forming organs and certain disorders involving the immune mechanism (principal); D72.829 Elevated white blood cell count, unspecified | CPT/HCPCS: 36415 ==

== ENCOUNTER 2025-01-14 15:03 | Outpatient (CLI) | payer MEDICARE, SELFPAY ==
[2025-01-14 16:14] LABS: Alanine Aminotransferase 35 U/L (12-78); Albumin Level 4.6 g/dl (3.5-5.0); Albumin/Globulin Ratio 2.2 (1.1-1.8); Alkaline Phosphatase 59 U/L (38-126); Anion Gap 10.6 mEq/L (5-15); Aspartate Amino Transferase 28 U/L (17-59); Bilirubin,Total 0.5 mg/dl (0.2-1.3); Blood Urea Nitrogen 37 mg/dl (9-20); Calcium 9.3 mg/dl (8.4-10.2); Carbon Dioxide 28 mmol/L (22.0-30.0); Chloride 105 mmol/L (98-107); Estimated Glomerular Filt Rate 50 ml/min (>60); GFR (African American) 60 ML/MIN (>60); Globulin 2.1 g/dL (1.3-3.2); Glucose 96 mg/dl (74-100); Lactate Dehydrogenase 169 U/L (313-618); Potassium 4.6 mmoL/L (3.5-5.1); Sodium 139 mmol/L (136-145); Total Protein,Serum 6.7 g/dl (6.3-8.2)
[2025-01-16 07:11] LABS: ONC Beta-2 Microglobulin 2.2 mg/L (0.6-2.4)
== END 2025-01-14 23:59 | disposition home or self-care (01) ==
LOC: LAB 15:04
PROVIDERS: PCP Internal Medicine Adolescent Medicine; Visit Provider Internal Medicine Medical Oncology
DX: D72.829 Elevated white blood cell count, unspecified (principal); D72.820 Lymphocytosis (symptomatic); Z86.2 Personal history of diseases of the blood and blood-forming organs and certain disorders involving the immune mechanism
CPT/HCPCS: 36415; 80053; 82232; 83615

== ENCOUNTER 2025-01-27 13:01 | Outpatient (CLI) | payer MEDICARE, SELFPAY ==
--- NOTE | 2025-01-27 13:00 | CT_ITS ---
FINAL REPORT TECHNIQUE: IV contrast enhanced exam This study was performed with techniques to keep radiation doses as low as reasonably achievable, (ALARA). Individualized dose reduction techniques using automated exposure control or adjustment of mA and/or kV according to the patient's size were employed. CLINICAL HISTORY: Leukocytosis COMPARISON: None FINDINGS: CT ABDOMEN PELVIS WITH CONTRAST: Abdomen: The gallbladder has been surgically resected. Liver has an unremarkable CT appearance. The spleen, pancreas and adrenal glands are unremarkable. Kidneys demonstrate small right renal cysts. No biliary ductal dilatation is identified. Mild gastric distention is seen. No evidence of an abscess is present. No bowel obstruction or fluid collection is seen. Pelvis: The appendix is normal in appearance. Pelvic bowel loops are unremarkable. Mild sigmoid diverticulosis is present without acute inflammatory change. The bladder and prostate are normal. There is a tiny left inguinal hernia containing fat. No fluid collection or adenopathy is seen. IMPRESSION: Unremarkable CT evaluation of the abdomen and pelvis, without evidence of inflammatory change or an abscess. Reviewed, Interpreted and Dictated by Alysha Russell MD Transcribed by Rosangela Unger Authenticated and [facility]
--- NOTE | 2025-01-27 13:00 | CT_ITS ---
FINAL REPORT CLINICAL HISTORY: Leukocytosis COMPARISON: None FINDINGS: CT CHEST WITH CONTRAST: Axial CT images of the chest were obtained with contrast. Coronal and sagittal reformatted images were also obtained. This study was performed with techniques to keep radiation doses as low as reasonably achievable, (ALARA). Individualized dose reduction techniques using automated exposure control or adjustment of mA and/or KV according to the patient's size were employed. There is no evidence of mediastinal or hilar mass or adenopathy. No axillary mass or adenopathy is identified. On lung window images, no pulmonary mass or dominant pulmonary nodule is identified. Left lower lobe scarring is present. There is left pleural thickening with calcified pleural plaque. A small chronic loculated pleural effusion is noted. The right lung is clear. IMPRESSION: Left lower lobe scar, with left pleural thickening and calcified left-sided pleural plaque. A small chronic localized left pleural effusion is present. The right lung is clear. No evidence of adenopathy is present, and no acute intrathoracic abnormality is identified. Reviewed, Interpreted and Dictated by Alysha Russell MD Transcribed by Rosangela Unger Authenticated and [facility]
[2025-01-27] MEDS: IOPAMIDOL-370 (76%);100ML BOTTLE 75 ML IV (13:25)
[2025-01-27] MEDS: SODIUM CHLORIDE 0.9% 10ML SYR (RAD ONLY) 10 ML IV (13:25)
== END 2025-01-27 23:59 | disposition home or self-care (01) ==
LOC: RAD 13:02
PROVIDERS: PCP Internal Medicine Adolescent Medicine; Visit Provider Internal Medicine Medical Oncology
DX: J90 Pleural effusion, not elsewhere classified (principal); J98.4 Other disorders of lung; D72.829 Elevated white blood cell count, unspecified
CPT/HCPCS: 71260; 74177; Q9967

== ENCOUNTER 2025-05-21 11:59 | Outpatient (CLI) | payer MEDICARE, SELFPAY ==
--- OUTSIDE RECORDS SUMMARY | 2025-05-21 12:01 | XMS_ITS | Clinical Summary ---
Author Organization [facility] Address [address] [place] [address] Care Team Providers Care Bank Sales And Service Manager Name Role Phone Addy Orozco MD Primary Care Provider [phone] Allergies Active Allergy Reactions Criticality Noted Date Comments Rosuvastatin Calcium 11/07/2016 hand aching. Lisinopril 11/07/2016 generalized fatigue and weakness. Medications glipiZIDE (GLUCOTROL) 5 MG tablet Take 5 mg by mouth Daily. Active metFORMIN (GLUCOPHAGE) 500 MG tablet Take 500 mg by mouth Daily With Breakfast. 0 03/03/2019 Active aspirin 81 MG EC tabletIndications :Coronary artery disease involving pala coronary artery of pala heart without angina pectoris Take 1 tablet by mouth Daily. 03/18/2019 Active atorvastatin (LIPITOR) 40 MG tabletIndications :Hyperlipidemia LDL goal <70 Take 1 tablet by mouth Every Night. 0 03/18/2019 Active carvedilol (COREG) 3.125 MG tabletIndications :Coronary artery disease involving pala coronary artery of pala heart without angina pectoris Take 1 tablet by mouth 2 (Two) Times a Day. 0 03/18/2019 Active losartan (COZAAR) 50 MG tabletIndications :Essential hypertension Take 1 tablet by mouth Daily. 0 03/18/2019 Active nitroglycerin (NITROSTAT) 0.4 MG SL tabletIndications :Coronary artery disease involving pala coronary artery of pala heart without angina pectoris 1 under the tongue as needed for angina, may repeat q5mins for up three doses 25 tablet 5 03/18/2019 Active clopidogrel (PLAVIX) 75 MG tabletIndications :Coronary artery disease involving pala coronary artery of pala heart without angina pectoris Take 1 tablet by mouth Daily. 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 De Dios (08/21/2007): PERDOMO to LAD. SVG to distal RCA. Nuclear stress test (09/19/2008): Small region of mild inferior apical reversible ischemia, sparing septum. LVEF 57%. Cardiac catheterization (10/08/2008): Multivessel CAD. Patent PERDOMO to LAD and SVG to RCA. LVEF 60% Nuclear stress (02/14/2017): Small lateral ischemia. LVEF 55%. Echo (02/14/2017): Mild LVH. Grade I diastolic dysfunction. Mild MR Cardiac catheterization for unstable angina (10/15/17): Severe multivessel CAD. Critical disease of SVG to RCA status post PCI with CRISTI. Severe disease of pala circumflex also noted. Echocardiogram (10/15/2017): LVEF 60%. Mild concentric LVH. The cardiac valves are functionally normal. Assessment & Plan (04/07/2020 1:09 PM EDT): Patient is presently asymptomatic but has known significant disease of the circumflex Continue DAPT, beta-maxime, and statin therapy Low threshold for nuclear stress testing to assess severity of lateral wall ischemia if symptoms develop Assessment & Plan (03/18/2019 10:11 AM EDT): Presently without angina Continue DAPT, beta-maxime, and statin therapy Assessment & Plan (12/03/2017 9:23 AM EDT): Continue dual antiplatelet therapy until 10/2018 Continue Coreg 3.125 twice a day Continue sublingual nitroglycerin for any episodes of angina. Assessment & Plan (01/16/2017 3:18 PM EDT): Schedule myocardial perfusion study Schedule echocardiogram Continue aspirin 81 mg daily Start metoprolol tartrate 12.5 mg twice a day Essential hypertension 11/07/2016 Overview (04/07/2020): Target blood pressure <130/80 mmHg Assessment & Plan (04/07/2020 1:09 PM EDT): Mildly elevated today's visit Consider adding amlodipine if BP >130/80 at future visit Assessment & Plan (03/18/2019 10:12 AM EDT): Recent issues with symptomatic hypotension PCP to continue to monitor Assessment & Plan (12/03/2017 9:24 AM EDT): Hypertension is controlled Continue losartan/chlorothiazide 100/25 mg 1 tablet daily Continue Coreg 3.125 twice a day Assessment & Plan (01/16/2017 3:18 PM EDT): Continue losartan/hydrochlorothiazide 50/12.5 mg 2 tablets daily Continue amlodipine 5 mg daily Hyperlipidemia LDL goal <70 11/07/2016 Overview (01/16/2017): High-intensity statin therapy indicated given presence coronary artery disease Assessment & Plan (04/07/2020 1:05 PM EDT): Reportedly well-controlled on recent blood work Continue atorvastatin Assessment & Plan (03/18/2019 10:12 AM EDT): Continue atorvastatin Request lipids from PCP office after performed in a couple months Assessment & Plan (12/03/2017 9:24 AM EDT): Continue Lipitor 40 mg daily Obtain CMP and lipid profile the day Assessment & Plan (01/16/2017 3:19 PM EDT): Continue Lipitor 10 mg daily Follow-up PCP for routine lipid monitoring Resolved Problems Problem Noted Date Diagnosed Date Resolved Date Current smoker 03/18/2019 03/18/2019 Chest pain at rest 10/12/2017 8 Family History Medical History Relation Name Comments No Known Problems Brother 1 No Known Problems Brother 2 No Known Problems Brother 3 No Known Problems Brother 4 No Known Problems Brother 5 Diabetes Mother Heart disease Sister 1 Heart disease Sister 2 Heart disease Sister 3 No Known Problems Sister 4 No Known Problems Sister 5 Relation Name Status Comments Brother 1 Alive Brother 2 Alive Brother 3 Alive Brother 4 Alive Brother 5 Alive Father Unknown Mother Sister 1 Sister 2 Sister 3 Sister 4 Alive Sister 5 Alive Sister 6 Alive Social History Tobacco Use Types Packs/Day Years Used Date Smoking Tobacco: Never Smokeless Tobacco: Never Alcohol Use Standard Drinks/Week Comments No 0 (1 standard drink = 0.6 oz pur e alcohol) Abuse Screen Answer Date Recorded Unsafe at Home or Work/School Not on file Feels Threatened by Someone? Not on file 05/2023 Does Anyone Keep You from Co ntacting Others or Doint Things Outside the Home? Not on file 06/18/2023 Physical Sign of Abuse Present Not on file 1 Housing Stability Answer Date Recorded Current Living Arrangements Not on file 05/2023 Potentially Unsafe Housing Conditions Not on barbara e 06/18/2023 Family and Community Support Answer Moises e Recorded Help with Day-to-Day Activities Not on file 06/18/2023 Lonely or Isolated Not on file 06/18/2023 Employment Answer Date Recorded Do you want help finding or keeping work or a otto b? Not on file 06/18/2023 Disabilities Answer Date Recorded Concentrating, Remembering, or Making Decisions Difficulty Not on file 06/18/2023 Doing Errands Independently Difficulty Not on fi le 06/18/2023 Education Answer Date Recorded Help with school or training? Not on file Preferred Language Not on file 06/18/2023 Sex and Gender Information Value Date Recorded Sex Assigned at Not on file Legal Sex Male 12:43 PM EDT Gender Identity Not on file Sexual Orientation Not on file Last Filed Vital Signs Vital Sign Reading Time Taken Comments Blood Pressure 138/74 04/07/2020 10:12 AM EDT Pulse 64 04/07/2020 10:12 AM EDT Temperature 36.8 C (98.3 F) 10/16/2017 7:14 AM EST Respiratory Rate 16 10/16/2017 7:14 AM EST Oxygen Saturation 97% 04/07/2020 10:12 AM EDT Inhaled Oxygen Concentration - - Weight 82.1 kg (181 lb) 04/07/2020 10:12 AM EDT Height 170.2 cm (5' 7 ) 04/07/2020 10:12 AM EDT Body Mass Index 28.35 04/07/2020 10:12 AM EDT Plan of Treatment Health Maintenance Due Date Last Done Comments TDAP/TD VACCINES (1 - Tdap) 1969 COLOGUARD 1995 COLON CANCER SCREENING 5 YEA R SIGMOIDOSCOPY 1995 COLONOSCOPY 1995 [address] CANCER SCREENING 1995 CT COLONOGRAPHY 1995 FECAL OCCULT BLOOD TEST 1995 FIT Testing (1 year) 1995 Pneumococcal Vaccine 50+ (1 of 1 - PCV) 2000 ZOSTER VACCINE (1 of 2) 2000 AAA SCREEN ONCE 2015 ANNUAL PHYSICAL 01/16/2017 HEPATITIS C SCREENING 01/16/2017 LIPID PANEL 01/08/2020 01/07/2019, 09/11, 12/03/2017, Additional history exists COVID-19 Vaccine ( - 2023-2 5 season) 2025 INFLUENZA VACCINE 06/10/2025 HEMOGLOBIN A1C Discontinued 05/06/2019, 12/11, 10/01/2018, Additional history exists Medical Devices 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 Lasting Device Identifier Shelf Expiration Date Model / Serial / Lot Stent Xience [employer] Rx [id number] - [id number] Implanted:Qty: 1 on 10/15/2017 by Gomez Meza IV, MD at [facility] VASCULAR [id number] / / Stent [employer]ience [employer]pine [employer] Rx [id number] - [id number] Implanted:Qty: 1 on 10/15/2017 by Gomez Meza IV, MD at [facility] VASCULAR [id number] / / Procedures Procedure Name Priority Date/Time Associated Diagnosis Comments LIPID PANEL Routine 12/03/2017 9:36 AM EDT Hyperlipidemia LDL goal <70 HEMOGLOBIN A1C STAT 10/15/2017 8:58 AM EST from Last 3 Months or Most Recently Relevant to Health Maintenance Results * (ABNORMAL) Lipid Panel (12/03/2017 9:36 AM EDT) Total Cholesterol 168 0 - 200 mg/dL 12/03/2017 11:02 AM EDT LABORATORY Triglycerides 372(H) 0 - 150 mg/dL 12/03/2017 11:02 AM EDT LABORATORY HDL Cholesterol 35(L) 40 - 60 mg/dL 12/03/2017 11:02 AM EDT LABORATORY LDL Cholesterol 66 0 - 130 mg/dL 12/03/2017 11:02 AM EDT LABORATORY Blood Venipuncture / Unknown 12/03/2017 9:36 AM EDT 12/03/2017 9:36 AM EDT Narrative LABORATORY - 12/03/2017 11:02 AM EDT Cholesterol Reference Ranges: Desirable < 200 mg/dL Borderline 200-239 mg/dL High Risk > 239 mg/dL Triglyceride Reference Ranges: Normal < 150 mg/dL Borderline 150-199 mg/dL High 200-499 mg/dL Very High > 499 mg/dL HDL Reference Ranges: Low < 40 mg/dL High > 59 mg/dL LDL Reference Ranges: Optimal < 100 mg/dL Near Optimal 100-129 mg/dL Borderline 130-159 mg/dL High 160-189 mg/dL Very High > 189 mg/dL us Dione Schwab APRN LAB BLOOD ORDERABLES [facility]
[address] [place] [address], * (ABNORMAL) Hemoglobin A1c (10/15/2017 8:58 AM EST) Hemoglobin A1C 8.40(H) 4.80 - 5.60 % 10/15/2017 10:41 AM EST LABORATORY Blood Line / Unknown 10/15/2017 8: 58 AM EST 10/15/2017 9:06 AM EST Narrative LABORATORY - 10/15/2017 10:41 AM EST The [place] [employer] recommends maintenance of Hemoglobin A1C at 7.0% or lower. Goals for Hemoglobin A1C reduction may need to be modified if hypoglycemia is a problem. us Dione Schwab APRN LAB BLOOD ORDERABLES [facility]
[address] [place] [address], from Last 3 Months or Most Recently Relevant to Health Maintenance Insurance [id number] [employer] Advance Directives * Full Code (Latest Code Status on File) Date Activated Date Inactivated Comments 10/15/2017 1:20 PM 10/16/2017 12:11 PM Care Teams Bank Sales And Service Manager Relationship Specialty Start Date End Date Addy Orozco MD [address] [place] [address] PCP - General Internal Medicine 03/18/19
[2025-05-21 12:32] LABS: Hematocrit 43.2 % (42.0-52.0); Hemoglobin 13.9 g/dL (14.1-18.0); Immature Granulocytes % 0.2 %; Mean Corpuscular HGB Conc 32.2 g/dL (31.8-35.4); Mean Corpuscular Hemoglobin 28.4 pg (27.0-31.2); Mean Corpuscular Volume 88.3 fl (80-94); Nucleated Red Blood Cells % 0 %; Platelet Count 163 K/mm3 (142-424); Red Blood Count 4.89 M/mm3 (4.60-6.20); Red Cell Distribution Width-SD 46.7 fL; White Blood Count 24.3 K/mm3 (4.8-10.8)
[2025-05-21 12:53] LABS: Total Cells Counted 100
[2025-05-21 12:55] LABS: RBC Morphology Normal
[2025-05-21 13:41] LABS: Albumin Level 4.8 g/dl (3.5-5.0); Chloride 104 mmol/L (98-107); Potassium 4.5 mmoL/L (3.5-5.1); Sodium 138 mmol/L (136-145)
[2025-05-21 13:44] LABS: Alanine Aminotransferase 22 U/L (12-78); Albumin/Globulin Ratio 1.9 (1.1-1.8); Alkaline Phosphatase 66 U/L (38-126); Anion Gap 11.5 mEq/L (5-15); Aspartate Amino Transferase 26 U/L (17-59); Bilirubin,Total 1.2 mg/dl (0.2-1.3); Blood Urea Nitrogen 29 mg/dl (9-20); Calcium 9.8 mg/dl (8.4-10.2); Carbon Dioxide 27 mmol/L (22.0-30.0); Creatinine,Serum 1.50 mg/dl (0.66-1.25); Estimated Glomerular Filt Rate 46 ml/min (>60); GFR (African American) 55 ML/MIN (>60); Globulin 2.5 g/dL (1.3-3.2); Glucose 99 mg/dl (74-100); Total Protein,Serum 7.3 g/dl (6.3-8.2)
== END 2025-05-21 23:59 | disposition home or self-care (01) ==
LOC: LAB 11:59
PROVIDERS: PCP Internal Medicine Adolescent Medicine; Visit Provider Internal Medicine Medical Oncology
DX: D72.829 Elevated white blood cell count, unspecified (principal)
CPT/HCPCS: 36415; 80053; 83615; 85007; 85025